=== PATIENT | female | born 2005 | race Caucasian/White ===

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

== ENCOUNTER 2023-01-25 16:56 | Emergency (ER) | payer MEDICAID, SELFPAY ==
[2023-01-25 17:30] VITALS: BP 115/68; PULSE 70; RESP 18; TEMP 36.6; O2SAT 98; BMI 30.3
--- NOTE | 2023-01-25 17:43 | EXP.UTC ---
Discharge Plan Disposition Patient Disposition: Home, Self-Care Condition: Good Referrals Follow up/Referrals: Provider,Referral, MD [Primary Care Provider] - See instructions Activity Restrictions/Add. Instructions Additional Instructions/Restrictions: Follow up with your Family Doctor Follow up with OBGYN if you continue to be late on your period Return if needed Straight to ER if any life threatening symptoms Clinical Impressions Clinical Impression: Encounter for test with result negative Discharge ED Provider: Liliana Goldberg [facility] General Stated complaint: test Mode of Arrival: Ambulatory Source of Information: Patient Limitations: No Limitations Time Seen by Provider: 01/25/23 17:43 Description of Symptoms (Recalled from Triage Doc. by RN): Pt wants a preg test. HEENT Symptoms (Recalled from RN notes): No Resp Symptoms (Recalled from RN notes): No Skin Symptoms (Recalled from RN notes): No MS Symptoms (Recalled from RN notes): No Functional Status (Recalled from RN notes): n/a History of Present Illness Provider Complaint: Patient states that she wants a test States that she took 7 home test and 6 was negative and one was positive so she wanted to come in and get a test here Related Data Allergies Allergy/AdvReac Type Severity Reaction Status Date / Time No Known Allergies Allergy Verified 01/25/23 17:42 Worker's Comp Is this a Worker's Comp case?: No [facility] Disclaimer: The information contained in this section may have been updated after the patient was seen, as this information can be updated by other users. Social History Smoking Status: Never smoker alcohol intake: never current occupational status: student Travel in the last 8 weeks: None ROS Obtained: Yes All systems reviewed & no additional complaints except as documented and Yes Systems reviewed as appropriate & no additional complaints except as documented Constitutional Constitutional: Reports system reviewed and no additional complaints, except as documented and Reports as per HPI ENT Ears, Nose, Mouth, and Throat: Reports system reviewed and no additional complaints, except as documented and Reports as per HPI Cardiovascular Cardiovascular: Reports system reviewed and no additional complaints, except as documented and Reports as per HPI Respiratory Respiratory: Reports system reviewed and no additional complaints, except as documented and Reports as per HPI Gastrointestinal Gastrointestingal: Reports system reviewed and no additional complaints, except as documented and as per HPI; Denies abdominal pain Genitourinary Female Genitourinary: Reports system reviewed and no additional complaints, except as documented and Reports as per HPI Comments: requesting test blood and urine Physical Exam General General appearance: alert and in no apparent distress ENT ENT exam: Present mucous membranes moist Respiratory Respiratory exam: Present normal lung sounds bilaterally; Absent respiratory distress or wheezes Cardiovascular Cardiovascular exam: Present regular rate, normal rhythm and normal heart sounds Abdominal Exam Abdominal exam: Present soft and normal bowel sounds; Absent distention or tenderness Neurological Exam Neurological exam: Present alert, oriented X3 and normal gait Medical Decision Making Yaakov Inquiry Pt receiving controlled substance: No Yaakov was queried for this patient: No Vital Signs: 01/25/23 17:30 Temperature 97.8 F Temperature Source Oral Pulse Rate [Right Radial] 70 Respiratory Rate 18 Blood Pressure [Right Arm] 115/68 Blood Pressure Mean [Right Arm] 83 Blood Pressure Source [Right Arm] Automatic Cuff Blood Pressure Position [Right Arm] Sitting 02 Sat by Pulse Oximetry 98 Oxygen Delivery Method Room Air Lab Data Lab results reviewed: Yes I reviewed the patient's lab results. Orders (Tests/Meds
[2023-01-25 18:02] LABS: UTC Pregnancy Test, Urine Negative (Negative)
[2023-01-25 18:15] LABS: HCG Qualitative, Serum Negative (Negative)
[2023-01-25 18:29] VITALS: BP 115/68; PULSE 70; RESP 18; TEMP 36.6; O2SAT 98
== END 2023-01-25 18:29 | disposition home or self-care (01) ==
PROVIDERS: Emergency Provider Nurse Practitioner
DX: Z32.02 Encounter for pregnancy test, result negative (principal)
CPT/HCPCS: 81025; 84703; 99212; G0463

== ENCOUNTER 2023-02-07 18:29 | Emergency (ER) | payer MEDICAID, SELFPAY ==
[2023-02-07 18:44] VITALS: BP 140/84; PULSE 104; RESP 16; TEMP 36.8; O2SAT 95; BMI 31.8
[2023-02-07 19:29] LABS: Microscopic, Urine URINE MICROSCOPIC (MICROSCOPIC)
[2023-02-07 19:32] LABS: Appearance,Urine CLEAR (Clear); Blood, Urine Negative (Negative); Color,Urine YELLOW (Yellow); Glucose,Urine (UA) Negative (Negative); Ketones,Urine Negative (Negative); Leukocyte Esterase,Urine 1+ (Negative); Nitrate,Urine Negative (Negative); PH,Urine 5.5 (5.0-8.5); Protein,Urine Negative (Negative); Specific Gravity, Urine >= 1.030 (1.005-1.030); Urobilinogen,Urine 0.2 EU/dl (0.2)
[2023-02-07 19:36] LABS: Urine Pregnancy, HCG Qual. Negative (Negative)
[2023-02-07 19:38] LABS: Bilirubin,Urine 1+ (Negative)
[2023-02-07 19:49] LABS: Basophils % 0.3 % (0.1-2.0); Eosinophils # 0.1 K/mm3 (0.0-0.4); Eosinophils % 1.2 % (0.1-12.0); Hematocrit 39.7 % (37.0-47.0); Hemoglobin 13.3 g/dL (12.2-16.2); Lymphocytes # 2.9 K/mm3 (0.7-4.5); Lymphocytes % 25.2 % (10-50); Mean Corpuscular HGB Conc 33.6 g/dL (31.8-35.4); Mean Corpuscular Hemoglobin 27.7 pg (27.0-31.2); Mean Corpuscular Volume 82.3 fl (81-99); Mean Platelet Volume 7.6 fl (7.4-10.4); Monocytes # 0.6 K/mm3 (0.1-1.0); Monocytes % 5.4 % (1.7-9.3); Neutrophils # 7.7 K/mm3 (1.8-7.8); Neutrophils % 67.8 % (37.0-80.0); Platelet Count 361 K/mm3 (142-424); Red Blood Count 4.82 M/mm3 (4.20-5.40); Red Cell Distribution Width 14.3 % (11.5-17.5); White Blood Count 11.4 K/mm3 (4.5-13.0)
[2023-02-07 19:50] LABS: Alanine Aminotransferase 24 U/L (12-78); Albumin Level 4.5 g/dl (3.5-5.0); Albumin/Globulin Ratio 1.2 (1.1-1.8); Alkaline Phosphatase 81 U/L (38-126); Anion Gap 8.5 mEq/L (5-15); Aspartate Amino Transferase 27 U/L (14-36); Bilirubin,Total 0.5 mg/dl (0.2-1.3); Blood Urea Nitrogen 10 mg/dl (7-17); Carbon Dioxide 26 mmol/L (22.0-30.0); Chloride 106 mmol/L (98-107); Creatinine Clearance Estimated 150 mL/min (50-200); Estimated Glomerular Filt Rate 107 ml/min (>60); GFR (African American) 129 ML/MIN (>60); Globulin 3.7 g/dL (1.3-3.2); Glucose 102 mg/dl (74-100); Lipase 94 U/L (23-300); Potassium 3.5 mmoL/L (3.5-5.1); Sodium 137 mmol/L (136-145); Total Protein,Serum 8.2 g/dl (6.3-8.2)
[2023-02-07 19:58] LABS: Bacteria,Urine Trace /lpf; Squamous Epithelial Cell,Urine Occasional #/hpf (0-5)
--- NOTE | 2023-02-07 20:27 | HMH.EDGENADL ---
Discharge Plan Disposition Patient Disposition: Home, Self-Care Prescriptions Prescriptions: New nitrofurantoin monohyd/m-cryst [Macrobid] 100 mg capsule 100 mg PO BID 5 Days Qty: 10 0RF Rx Instructions: must administer with a meal/food ondansetron 4 mg tablet,disintegrating 4 mg PO Q6H PRN (Reason: nausea and vomiting) Qty: 10 0RF Referrals Follow up/Referrals: Palmer Darden MD [Primary Care Provider] - See instructions Activity Restrictions/Add. Instructions Additional Instructions/Restrictions: Call your family doctor to establish care for this visit to the emergency department and schedule follow-up within 48 hours to ensure improvement. If you have any worsening of your condition or any other concerning signs or symptoms, return to the emergency department or your primary care doctor for further evaluation. Antibiotic twice daily for 5 days, Zofran as needed. Clinical Impressions Clinical Impression: UTI (urinary tract infection) Stand Alone Forms Stand Alone Forms: Work/School Release Instructions Patient Instructions: DI for Acute Abdominal Pain Discharge ED Provider: Efrain Pierre General Adult HPI General Chief complaint: Abdominal Pain Stated complaint: stomach ache Time Seen by Provider: 02/07/23 18:40 Mode of Arrival: Ambulatory Source of Information: Patient Limitations: No Limitations Description of Symptoms (Recalled from ER Triage Doc. by RN): c/o sharp in upper right quad that comes and goes for a few weeks. blood and urine preg came back negative. N/V in the t/o the day History of Present Illness HPI narrative: 18-year-old female presenting with abdominal pain. Starts in right upper quadrant, but radiates to her left lower quadrant. 1 episode of nonbloody, nonbilious vomiting today. No fevers or chills, diarrhea or constipation, dysuria, hematuria, abnormal vaginal discharge or bleeding. States that she just got off an antibiotic for UTI. Pain is mild, made better with rest, made worse with working. States when she gets stressed he gets worse. Related Data Previous Rx's Medication Instructions Recorded nitrofurantoin 100 mg PO BID 5 days #10 caps 02/07/23 monohydrate/macrocrystals 100 mg capsule (Macrobid) ondansetron 4 mg disintegrating 4 mg PO Q6H PRN nausea and 02/07/23 tablet vomiting #10 tabs Allergies Allergy/AdvReac Type Severity Reaction Status Date / Time No Known Allergies Allergy Verified 01/25/23 17:42 [facility] Disclaimer: The information contained in this section may have been updated after the patient was seen, as this information can be updated by other users. Social History Smoking Status: Never smoker alcohol intake: never current occupational status: student Travel in the last 8 weeks: None ROS Obtained: Yes All systems reviewed & no additional complaints except as documented Physical Exam General General appearance: alert and in no apparent distress Head Head exam: atraumatic and normocephalic Eye Eye exam: Present normal appearance, PERRL and EOMI ENT ENT exam: Present mucous membranes moist Neck Neck exam: Present normal inspection, full ROM and trachea midline Respiratory Respiratory exam: Absent respiratory distress, wheezes, stridor, accessory muscle use or prolonged expiratory phase Cardiovascular Cardiovascular exam: Present normal rhythm Abdominal Exam Abdominal exam: Present soft; Absent distention, tenderness, guarding, rebound, rigidity or normal bowel sounds Extremities Exam Extremities exam: Absent edema Neurological Exam Neurological exam: Present alert, oriented X3, CN II-XII intact and normal gait; Absent motor sensory deficit Skin Skin exam: Present warm and dry; Absent diaphoresis or erythema Medical Decision Making Medical Records Medical records reviewed: Yes I reviewed the patient's medical records. Yaakov Ewing Pt receiving controlle
[2023-02-07 20:42] VITALS: BP 114/72; PULSE 80; RESP 16; TEMP 36.7; O2SAT 99
--- NOTE | 2023-02-10 14:40 | PC.NURSE ---
urine preliminary reported growth but further testing needed.
--- NOTE | 2023-02-13 16:47 | PC.NURSE ---
urine culture shows mixed urogenital sophy, coagulase - staphy, Pt dc on macrobid, aware, no further action
== END 2023-02-07 20:44 | disposition home or self-care (01) ==
PROVIDERS: Emergency Provider Emergency Medicine; PCP Family Medicine
DX: N39.0 Urinary tract infection, site not specified (principal); R10.11 Right upper quadrant pain; R10.32 Left lower quadrant pain; R11.10 Vomiting, unspecified
CPT/HCPCS: 80053; 81001; 81025; 83690; 85025; 87086; 99285

== ENCOUNTER 2023-02-22 18:24 | Emergency (ER) | payer MEDICAID, SELFPAY ==
[2023-02-22 18:25] VITALS: BP 117/81; PULSE 82; RESP 20; TEMP 37; O2SAT 97; BMI 31.2
--- NOTE | 2023-02-22 18:25 | ECG_ITS ---
APPROVED REPORT Exam: Resting ECG HR:79 bpm ECG Measurements Heart Rate 79 AXES WI 126 P 74 QRSd 76 QRS 24 QT 342 T 24 QTc 377 Conclusion SINUS RHYTHM NORMAL ECG UNCONFIRMED REPORT Electronically signed by : Dante Ovalle MD 02/24/2023 20:37:45
--- NOTE | 2023-02-22 18:27 | PC.NURSE ---
Dr. Ricketts at [facility] for pt eval
--- NOTE | 2023-02-22 18:34 | XR_ITS ---
PROCEDURE INFORMATION: Exam: XR Chest Exam date and time: 02/22/2023 6:35 PM Age: 18 years old Clinical indication: Pain; Left-sided; Additional info: Dyspnea TECHNIQUE: Imaging protocol: Radiologic exam of the chest. Views: 1 view. COMPARISON: CR XR CHEST 2V 10/20/2020 10:20 PM FINDINGS: Lungs: Unremarkable. No consolidation. Pleural spaces: Unremarkable. No pleural effusion. No pneumothorax. Heart/Mediastinum: Unremarkable. No cardiomegaly. Bones/joints: Unremarkable. IMPRESSION: No acute findings.
--- NOTE | 2023-02-22 18:35 | ED_ITS ---
Discharge Plan Disposition Patient Disposition: Home, Self-Care Prescriptions Prescriptions: New ondansetron 4 mg tablet,disintegrating 4 mg PO Q6H PRN (Reason: nausea and vomiting) 5 Days Qty: 20 0RF No Action nitrofurantoin monohyd/m-cryst [Macrobid] 100 mg capsule 100 mg PO BID 5 Days Qty: 10 0RF Rx Instructions: must administer with a meal/food ondansetron 4 mg tablet,disintegrating 4 mg PO Q6H PRN (Reason: nausea and vomiting) Qty: 10 0RF Referrals Follow up/Referrals: Palmer Darden MD [Primary Care Provider] - See instructions Clinical Impressions Clinical Impression: Atypical chest pain, Abdominal pain, Cyclical vomiting with nausea Discharge ED Provider: Dhaval Ricketts General Adult HPI General Chief complaint: Chest Pain Stated complaint: Chest Pain Time Seen by Provider: 02/22/23 18:27 History of Present Illness HPI narrative: Patient is a 18-year-old female with a history of chronic marijuana smoking presents today with 2 months of intermittent nausea and chest pain that started today. States that she has been smoking marijuana because it helps with her migraines in the past. She has been to the emergency department several times with abdominal discomfort nausea and vomiting. Today she states that she is having some substernal chest pressure nonradiating not associate with shortness of breath no diaphoresis associated with that she is not on any control pills no history of DVT or PE lower extremity swelling hemoptysis etc. She also complains of epigastric and left upper quadrant abdominal discomfort which is very mild. Denies any other significant past medical history. Fevers chills cough etc. today. Related Data Previous Rx's Medication Instructions Recorded nitrofurantoin 100 mg PO BID 5 days #10 caps 02/07/23 monohydrate/macrocrystals 100 mg capsule (Macrobid) ondansetron 4 mg disintegrating 4 mg PO Q6H PRN nausea and 02/07/23 tablet vomiting #10 tabs ondansetron 4 mg disintegrating 4 mg PO Q6H PRN nausea and 02/22/23 tablet vomiting 5 days #20 tabs Allergies Allergy/AdvReac Type Severity Reaction Status Date / Time No Known Allergies Allergy Verified 01/25/23 17:42 PFSH PFS Disclaimer: The information contained in this section may have been updated after the patient was seen, as this information can be updated by other users. Social History Smoking Status: Current every day smoker alcohol intake: never current occupational status: student Travel in the last 8 weeks: None ROS Obtained: Yes All systems reviewed & no additional complaints except as documented Physical Exam General General appearance: anxious (Tearful) and other (Smells very strongly of marijuana) Respiratory Respiratory exam: Present normal lung sounds bilaterally; Absent respiratory distress, wheezes or stridor Cardiovascular Cardiovascular exam: Present regular rate; Absent tachycardia Abdominal Exam Abdominal exam: Present soft; Absent distention or tenderness Neurological Exam Neurological exam: Present alert Medical Decision Making Yaakov Inquiry Pt receiving controlled substance: No Vital Signs: 02/22/23 18:25 Temperature 98.6 F Temperature Source Oral Pulse Rate [Right Radial] 82 Respiratory Rate 20 Blood Pressure [Right Arm] 117/81 Blood Pressure Mean [Right Arm] 93 Blood Pressure Source [Right Arm] Automatic Cuff Blood Pressure Position [Right Arm] Sitting 02 Sat by Pulse Oximetry 97 Oxygen Delivery Method Room Air Lab Data Lab results reviewed: Yes I reviewed the patient's lab results. Lab Results 02/22/23 18:30: WBC 8.9, RBC 4.82, Hgb 13.0, Hct 40.0, MCV 83.1, MCH 26.9 L, MCHC 32.4, RDW 15.0, Plt Count 324, MPV 8.6, Neut % (Auto) 76.1, Lymph % (Auto) 19.2, [place] % (Auto) 3.8, Eos % (Auto) 0.5, Baso % (Auto) 0.4, Neut # (Auto) 6.8, Lymph # (Auto) 1.7, [place] # (Auto) 0.3, Eos # (Auto) 0.0, Baso # (Auto) 0.0, Sodium 135 L, Potassium 3.8, Chloride 106, Carbon Dioxide 24, Anion Gap 8.8, BUN 7, Creatinine 0.60, Estimated Creat Clear 171, Estimated GFR 127, Est GFR ( Amer) 154, Glucose 106 H, Calcium 8.7, Total Bilirubin 0.3, AST 30, ALT 21, Alkaline Phosphatase 89, Troponin I < 0.01, Total Protein 7.7, Albumin 4.3, Globulin 3.4 H, Albumin/Globulin Ratio 1.3, Lipase 74, Serum HCG, Qual Negative 02/22/23 18:47: Urine Color Yellow, Urine Appearance Clear, Urine pH 6.0, Ur Specific [place] 1.010, Urine Protein Negative, Urine Glucose (UA) Negative, Urine Ketones Negative, Urine Blood 1+, Urine Nitrate Negative, Urine Bilirubin Negative, Urine Urobilinogen 0.2, Ur Leukocyte Esterase 3+ A 02/22/23 18:30 02/22/23 18:30 Orders (Tests/Meds): ED MEDICATIONS Discontinued Medications Generic Name Dose Route Start Last Admin Trade Name Freq PRN Reason Stop Dose Admin Lactated Ringer's 1,000 mls @ 999 mls/hr 02/22/23 18:45 02/22/23 18:49 Lactated Ringer's 1000 Ml Bag IV 02/22/23 19:45 999 mls/hr .Q1H1M NEMO Administration Ketorolac Tromethamine 15 mg 02/22/23 18:34 02/22/23 18:49 Ketorolac 30mg/Ml Vial IV 02/22/23 18:35 15 mg ONCE ONE Administration Ondansetron HCl 4 mg 02/22/23 18:34 02/22/23 18:49 Ondansetron 4mg/2ml Vial IV 02/22/23 18:35 4 mg ONCE ONE Administration ORDERS Category Date Time Status CXR --portable [XR chest portable] Stat Exams 02/22/23 18:34 Completed CBC w/Auto Diff [Complete Blood Count Auto Diff] Stat Lab 02/22/23 18:30 Completed CMP [Comprehensive Metabolic Panel] Stat Lab 02/22/23 18:30 Completed HCG Qualitative, Serum Stat Lab 02/22/23 18:30 Completed Lipase Stat Lab 02/22/23 18:30 Completed Troponin I Q3H Lab 02/22/23 22:15 Ordered Troponin I Q3H Lab 02/23/23 01:15 Ordered Troponin I Stat Lab 02/22/23 18:30 Completed UA [Urinalysis and Microscopic] Stat Lab 02/22/23 18:47 Results Urine Culture Stat Micro 02/22/23 18:47 Received ECG initial Besson Routine Y 02/22/23 18:25 Completed Medical Decision Narrative: 18-year-old female with intermittent abdominal discomfort nausea and vomiting with associated chronic marijuana smoking 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 She presents today with chest pain and abdominal discomfort abdominal exam is completely benign cardiopulmonary exam is benign as well she has no other significant risk factors we will get a single troponin she is PERC negative will get a chest x-ray administer Toradol Zofran IV fluids and reassess. This is not likely to be a cardiopulmonary emergency her abdominal exam is not consistent with a surgical emergency she has been advised to follow- up with her primary care doctor and to discontinue her marijuana use chronically as this could be secondary to her marijuana abuse. She voices understanding today. EKG performed which I personally interpreted shows a ventricular rate of 79 normal sinus rhythm no acute ischemic changes noted normal axis no conduction abnormalities this is nondiagnostic. Patient's urinalysis showed positive leukocyte Estrace however she has no frequency urgency dysuria will not treat this as a urinary tract infection. X-ray performed in person interpreted shows no acute cardiopulmonary emergency. Abs unremarkable serial abdominal exams completely benign she is tolerating p.o. prescription of Zofran has been given this is not consistent with an acute cardiopulmonary emergency was she was discharged in proved in stable condition. Critical Care Critical Care Time Critical Care Time: No
--- NOTE | 2023-02-22 18:40 | PC.NURSE ---
Rad at [facility] for portable xray
[2023-02-22 18:44] LABS: Basophils % 0.4 % (0.1-2.0); Eosinophils % 0.5 % (0.1-12.0); Lymphocytes # 1.7 K/mm3 (0.7-4.5); Lymphocytes % 19.2 % (10-50); Mean Corpuscular HGB Conc 32.4 g/dL (31.8-35.4); Mean Corpuscular Hemoglobin 26.9 pg (27.0-31.2); Mean Corpuscular Volume 83.1 fl (81-99); Mean Platelet Volume 8.6 fl (7.4-10.4); Monocytes # 0.3 K/mm3 (0.1-1.0); Monocytes % 3.8 % (1.7-9.3); Neutrophils # 6.8 K/mm3 (1.8-7.8); Neutrophils % 76.1 % (37.0-80.0); Platelet Count 324 K/mm3 (142-424); Red Blood Count 4.82 M/mm3 (4.20-5.40); White Blood Count 8.9 K/mm3 (4.5-13.0)
[2023-02-22] MEDS: LACTATED RINGERS 1000ML 1,000 ML 999 ML IV (18:49)
[2023-02-22] MEDS: KETOROLAC 30MG/ML VIAL 15 MG IV (18:49)
[2023-02-22] MEDS: ONDANSETRON 4MG/2ML VIAL 4 MG IV (18:49)
--- NOTE | 2023-02-22 18:49 | PC.NURSE ---
Pt ambulatory to bathroom and back to bed. Warm blanket provided and call light within reach.
[2023-02-22 18:52] LABS: Alanine Aminotransferase 21 U/L (12-78); Albumin Level 4.3 g/dl (3.5-5.0); Albumin/Globulin Ratio 1.3 (1.1-1.8); Alkaline Phosphatase 89 U/L (38-126); Anion Gap 8.8 mEq/L (5-15); Aspartate Amino Transferase 30 U/L (14-36); Bilirubin,Total 0.3 mg/dl (0.2-1.3); Blood Urea Nitrogen 7 mg/dl (7-17); Calcium 8.7 mg/dl (8.4-10.2); Carbon Dioxide 24 mmol/L (22.0-30.0); Chloride 106 mmol/L (98-107); Creatinine Clearance Estimated 171 mL/min (50-200); Estimated Glomerular Filt Rate 127 ml/min (>60); GFR (African American) 154 ML/MIN (>60); Globulin 3.4 g/dL (1.3-3.2); Glucose 106 mg/dl (74-100); Lipase 74 U/L (23-300); Potassium 3.8 mmoL/L (3.5-5.1); Sodium 135 mmol/L (136-145); Total Protein,Serum 7.7 g/dl (6.3-8.2)
[2023-02-22 19:00] LABS: HCG Qualitative, Serum Negative (Negative)
[2023-02-22 19:04] LABS: Microscopic, Urine URINE MICROSCOPIC (MICROSCOPIC)
--- NOTE | 2023-02-22 19:58 | PC.NURSE ---
Pt sitting in bed on phone, reports pain much better, denies any new complaints.
[2023-02-22 19:59] LABS: Troponin I < 0.01 ng/ml (0.00-0.034)
[2023-02-22 20:00] LABS: Appearance,Urine CLEAR (Clear); Bilirubin,Urine Negative (Negative); Blood, Urine 1+ (Negative); Color,Urine YELLOW (Yellow); Glucose,Urine (UA) Negative (Negative); Ketones,Urine Negative (Negative); Leukocyte Esterase,Urine 3+ (Negative); Nitrate,Urine Negative (Negative); Protein,Urine Negative (Negative); Urobilinogen,Urine 0.2 EU/dl (0.2)
--- NOTE | 2023-02-22 20:36 | PC.NURSE ---
Rounded on patient, patient assisted to bathroom at this time.
[2023-02-22 20:54] VITALS: BP 129/73; PULSE 86; RESP 16; TEMP 36.9; O2SAT 97
[2023-02-22 21:04] LABS: Bacteria,Urine 1+ /lpf
--- NOTE | 2023-02-26 02:19 | PC.NURSE ---
Dr. Adams looked at the positive urine culture result and stated no further treatment was needed at this time.
== END 2023-02-22 20:55 | disposition home or self-care (01) ==
PROVIDERS: Emergency Provider Student in an Organized Health Care Education/Training Program; PCP Family Medicine
DX: R07.89 Other chest pain (principal); R10.13 Epigastric pain; R10.12 Left upper quadrant pain; R11.2 Nausea with vomiting, unspecified; F17.200 Nicotine dependence, unspecified, uncomplicated
CPT/HCPCS: 71045; 80053; 81001; 83690; 84484; 84703; 85025; 87086; 93005; 96361; 96374; 96375; 99285; J2405

== ENCOUNTER 2023-03-21 10:31 | Outpatient (CLI) | payer OTHER, MEDICAID, SELFPAY ==
--- NOTE | 2023-03-21 10:44 | US_ITS ---
PROCEDURE: US TRANSVAGINAL CLINICAL INDICATION: Pelvic Pain COMPARISON: No exams were available for comparison FINDINGS: Transvaginal and transabdominal sonographic images of the pelvis were obtained. UTERUS: 6.0cm x 5.2cmx 3.1cm retroverted and retroflexed with a combined endometrial thickness of 11.2mm. LEFT OVARY: 13.5cmx15.0cmx9.8cm with a volume of 1,037.3ml. Left ovary is grossly enlarged with a simple appearing cyst measuring 13.5 cm x 13.2 cm X 9.8 cm. RIGHT OVARY: 7.0 cmx 5cmx4.1cm with a volume of 58.3ml. There is a follicle measuring 2.9 cm x 2.5 cm x 2.4 cm. Both ovaries are seen. Doppler flow to both ovaries are seen. There is no fluid in the cul-de-sac. IMPRESSION: 1. Retroverted, retroflexed uterus normal in shape and size. The endometrium is normal at 11.2 mm. 2. The left ovary is grossly enlarged with a simple appearing cyst measuring 13.5 cm. 3. The right ovary is enlarged and contains a simple follicle measuring 2.9 cm. 4. No fluid in the cul-de-sac. Dictated by: Kannan Gautam MD 03/21/2023 14:05 Kannan Gautam MD in [facility] 03/21/2023 14:05
== END 2023-03-21 23:59 ==
LOC: RAD 10:32
PROVIDERS: PCP Family Medicine; Visit Provider Obstetrics & Gynecology
DX: R10.2 Pelvic and perineal pain (principal)
CPT/HCPCS: 76830

== ENCOUNTER 2023-04-10 12:09 | Emergency (ER) | payer OTHER, MEDICAID, SELFPAY ==
[2023-04-10 12:15] VITALS: BP 134/78; PULSE 90; RESP 18; TEMP 37; O2SAT 99; BMI 33.0
--- NOTE | 2023-04-10 12:40 | ED_ITS ---
Discharge Plan Disposition Patient Disposition: Home, Self-Care Condition: Good Prescriptions Prescriptions: New amoxicillin 500 mg capsule 500 mg PO BID 10 Days Qty: 20 0RF Referrals Follow up/Referrals: Provider,Referral, MD [Primary Care Provider] - See instructions Activity Restrictions/Add. Instructions Additional Instructions/Restrictions: *Monitor Temp, Over the counter Motrin or Tylenol as directed/as needed Tylenol every 4 hours and Motrin every 6 hours (as long as your family doctor has told you that you can take it) for fever or pain. and straight to ER if unable to lower temp less than 101.0 after medication given *Warm salt water gargles may help to soothe the throat *Throat Lozenges? *Warm fluids like tea with honey may help to soothe the throat? *Sleep elevated *Humidifier/Vaporizer *Your throat swab was sent for culture. Those results are typically sent to your primary care. Be sure to follow up in 2-3 days with your family doctor/primary care physician if no improvement so they can review those result and treat if necessary. If you don?t have a primary care doctor, I recommend you get one but in the mean time, you will have to return to a walk in clinic Follow up IMMEDIATELY for new or worsening symptoms or no Noticeable improvement over the next 48-72 hours. 911 for difficulty breathing or swallowing Clinical Impressions Clinical Impression: Pharyngitis Qualifiers: Pharyngitis/tonsillitis etiology: unspecified etiology Qualified Code(s): J02.9 - Acute pharyngitis, unspecified Stand Alone Forms Stand Alone Forms: Work/School Release Instructions Patient Instructions: Sore Throat, DI for Fever (Symptom) -- Adult Discharge ED Provider: Liliana Goldberg [facility] General Stated complaint: sore throat, fever Mode of Arrival: Ambulatory Source of Information: Patient Time Seen by Provider: 04/10/23 12:40 Description of Symptoms (Recalled from Triage Doc. by RN): Pt's symptoms are sore throat. HEENT Symptoms (Recalled from RN notes): Yes Resp Symptoms (Recalled from RN notes): No Skin Symptoms (Recalled from RN notes): No MS Symptoms (Recalled from RN notes): No Functional Status (Recalled from RN notes): n/a History of Present Illness Provider Complaint: Patient states that yesterday she started having fever and sore throat States that as the night went on it continued to get worse States that today her throat was more swollen and red and had blisters on her tonsils so she came in Related Data Previous Rx's Medication Instructions Recorded amoxicillin 500 mg capsule 500 mg PO BID 10 days #20 caps 04/10/23 Allergies Allergy/AdvReac Type Severity Reaction Status Date / Time acetaminophen [From Tylenol] AdvReac Mild Vomiting Verified 04/10/23 12:39 Worker's Comp Is this a Worker's Comp case?: No [facility] Disclaimer: The information contained in this section may have been updated after the patient was seen, as this information can be updated by other users. 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 (Updated 04/10/23 @ 13:05 by Liliana Goldberg APRN) Left ovarian cyst Nausea Pelvic pain Family History Other Alcoholism Asthma Cancer Coronary artery disease Diabetes FHx: mental illness Heart attack Hyperlipidemia Hypertension Stroke Social History Smoking Status: Current every day smoker alcohol intake: never substance use type: marijuana current occupational status: student Travel in the last 8 weeks: None ROS Obtained: Yes All systems reviewed & no additional complaints except as documented and Yes Systems reviewed as appropriate & no additional complaints except as documented Constitutional Constitutional: Reports system reviewed and no additional complaints, except as documented, Reports as per HPI and Reports fever(s) ENT Ears, Nose, Mouth, and Throat: Reports system reviewed and no additional complaints, except as documented, Reports as per HPI and Reports sore throat Cardiovascular Cardiovascular: Reports system reviewed and no additional complaints, except as documented and Reports as per HPI Respiratory Respiratory: Reports system reviewed and no additional complaints, except as documented and Reports as per HPI Gastrointestinal Gastrointestingal: Reports system reviewed and no additional complaints, except as documented and as per HPI Physical Exam General General appearance: alert and in no apparent distress ENT ENT exam: Present mucous membranes moist Expanded ENT Exam Throat exam: Present tonsillar erythema and tonsillar exudate Respiratory Respiratory exam: Present normal lung sounds bilaterally; Absent respiratory distress or wheezes Cardiovascular Cardiovascular exam: Present regular rate, normal rhythm and normal heart sounds Neurological Exam Neurological exam: Present alert, oriented X3 and normal gait Medical Decision Making Yaakov Inquiry Pt receiving controlled substance: No Yaakov was queried for this patient: No Vital Signs: 04/10/23 12:15 Temperature 98.6 F Temperature Source Oral Pulse Rate [Right Radial] 90 Respiratory Rate 18 Blood Pressure [Right Arm] 134/78 Blood Pressure Mean [Right Arm] 96 Blood Pressure Source [Right Arm] Automatic Cuff Blood Pressure Position [Right Arm] Sitting 02 Sat by Pulse Oximetry 99 Oxygen Delivery Method Room Air Lab Data Lab results reviewed: Yes I reviewed the patient's lab results. Medical Decision Narrative: Patient rapid strep test negative however exudate noted on right tonsil area
[2023-04-10 13:04] LABS: UTC Influenza A Antigen Negative (Negative); UTC Influenza B Antigen Negative (Negative); UTC Strep Screen (Rapid) Negative (Negative)
[2023-04-10 13:18] VITALS: BP 134/78; PULSE 90; RESP 18; TEMP 37; O2SAT 99
== END 2023-04-10 13:18 | disposition home or self-care (01) ==
PROVIDERS: Emergency Provider Nurse Practitioner
DX: J02.9 Acute pharyngitis, unspecified (principal); R50.9 Fever, unspecified; F17.210 Nicotine dependence, cigarettes, uncomplicated
CPT/HCPCS: 87804; 87880; 99212; 99214; G0463

== ENCOUNTER 2023-05-02 10:48 | Outpatient (CLI) | payer OTHER, MEDICAID, SELFPAY ==
--- NOTE | 2023-05-02 10:54 | US_ITS ---
PROCEDURE: US TRANSVAGINAL CLINICAL INDICATION: f/u on ovarian cyst and abdominal pelvic pain COMPARISON: US US TRANSVAGINAL from 03/21/2023 FINDINGS: Transvaginal sonographic images of the pelvis were obtained. UTERUS: 5.9 cm x 4.4cmx 30cm retroverted with a combined endometrial thickness of 12.7mm. LEFT OVARY: 13.8 cmx14.2cmx11.2cm with a volume of 1,147.5ml. The left ovary contains a large simple appearing cyst measuring 13.6 cm x 13.0 cm x 10.0 cm. Similar in size to her last ultrasound. RIGHT OVARY: 4.9 cmx 4.2cmx2.9 cm with a volume of 31.2ml. Within the right ovary is a follicle measuring 3.0 cm x 2.8 cm x 2.4 cm. Both ovaries are seen and appear normal. Doppler flow to both ovaries are seen. There is trace fluid in the cul-de-sac. IMPRESSION: 1. Retroverted uterus normal in shape and size. The endometrium appears normal. 2. The left ovary is enlarged with a simple appearing cyst that measures 13.6 cm. This is similar in size to her last ultrasound. 3. The right ovary appears normal and has a follicle measuring 3.0 cm. 4. Trace fluid in the cul-de-sac. Dictated by: Kannan Gautam MD 05/02/2023 15:02 Kannan Gautam MD in [facility] 05/02/2023 15:02
== END 2023-05-02 23:59 ==
LOC: RAD 10:48
PROVIDERS: Visit Provider Obstetrics & Gynecology
DX: N83.202 Unspecified ovarian cyst, left side (principal); R10.9 Unspecified abdominal pain; R10.2 Pelvic and perineal pain
CPT/HCPCS: 76830

== ENCOUNTER 2023-05-21 12:37 | Emergency (ER) | payer OTHER, MEDICAID, SELFPAY ==
[2023-05-21] VITALS (7 sets, daily range): BP systolic 94–127; BP diastolic 60–87; PULSE 69–93; RESP 16–20; TEMP 36.6–36.9; O2SAT 97–100; BMI 31.1
--- NOTE | 2023-05-21 13:10 | ED_ITS ---
Discharge Plan Disposition Patient Disposition: Home, Self-Care Condition: Good Prescriptions Prescriptions: New cefdinir 300 mg capsule 300 mg PO BID 5 Days Qty: 10 0RF Referrals Follow up/Referrals: Deven Clarke DO [Primary Care Provider] - See instructions Activity Restrictions/Add. Instructions Additional Instructions/Restrictions: You were seen in the ED due to abdominal pain. Labs were reassuring. Urinalysis shows urinary tract infection. Please take antibiotics as prescribed. Follow-up with your SECURITIES LENDING TRADER. Return to the ED if symptoms worsen or if new concerning symptoms arise. Clinical Impressions Clinical Impression: Lower abdominal pain Acute cystitis Qualifiers: Hematuria presence: with hematuria Qualified Code(s): N30.01 - Acute cystitis with hematuria Instructions Patient Instructions: DI for Acute Abdominal Pain Discharge ED Provider: Hal Hogan General Adult HPI General Chief complaint: Abdominal Pain Stated complaint: abd pain Time Seen by Provider: 05/21/23 13:03 Mode of Arrival: Ambulatory Source of Information: Patient Limitations: No Limitations Description of Symptoms (Recalled from ER Triage Doc. by RN): pt presents to ED with c/o bilateral lower abdominal pain. pt reports she is to have a cyst removed on june 15. pt unsure of what side she has a cyst on. symptoms ongoing for the past couple of days . pain is intermittent History of Present Illness HPI narrative: Patient is an otherwise healthy 18-year-old female presenting due to abdominal pain. Patient states for the past 2 days she has has increasing lower abdominal pain. States she believes this is related to an ovarian cyst that was discovered last month. States this has been causing her pain on and off for the past couple of months. She has had associated nausea but no vomiting. Denies any fevers or chills. Denies any dysuria or changes in bowel movements. Denies any vaginal bleeding. Patient states she is scheduled for surgery on 06/15 to address the cyst. Related Data Previous Rx's Medication Instructions Recorded cefdinir 300 mg capsule 300 mg PO BID 5 days #10 caps 05/21/23 Allergies Allergy/AdvReac Type Severity Reaction Status Date / Time acetaminophen [From Tylenol] AdvReac Mild Vomiting Verified 05/03/23 10:20 [facility] Disclaimer: The information contained in this section may have been updated after the patient was seen, as this information can be updated by other users. 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 Left ovarian cyst Nausea Pelvic pain Surgical History No significant past surgical history Family History Other Alcoholism Asthma Cancer Coronary artery disease Diabetes FHx: mental illness Heart attack Hyperlipidemia Hypertension Stroke Social History Smoking Status: Never smoker alcohol intake: never substance use type: marijuana current occupational status: student Travel in the last 8 weeks: None ROS Obtained: Yes All systems reviewed & no additional complaints except as documented Gastrointestinal Gastrointestingal: Reports abdominal pain and nausea Physical Exam General General appearance: alert and in no apparent distress Head Head exam: atraumatic, normocephalic and normal inspection Eye Eye exam: Present normal appearance, PERRL and EOMI ENT ENT exam: Present normal exam, normal oropharynx, mucous membranes moist, TM's normal bilaterally and normal external ear exam Neck Neck exam: Present normal inspection, full ROM and trachea midline; Absent meningismus or lymphadenopathy Chest Chest inspection: Present normal inspection and symmetric chest wall rise; Absent tenderness Respiratory Respiratory exam: Present normal lung sounds bilaterally; Absent respiratory distress Cardiovascular Cardiovascular exam: Present regular rate and normal rhythm; Absent JVD Abdominal Exam Abdominal exam: Present soft, tenderness and normal bowel sounds; Absent distention or guarding Comment: Generalized abdominal tenderness localized to suprapubic region and left lower quadrant. Abdomen soft, nondistended. Extremities Exam Extremities exam: Present normal inspection, full ROM and normal capillary refill; Absent calf tenderness Back Exam Back exam: Present normal inspection; Absent tenderness Neurological Exam Neurological exam: Present alert and oriented X3 Psychiatric Psychiatric exam: Present normal affect and normal mood Skin Skin exam: Present warm, dry, intact and normal color Lymphatic Lymphatic Findings: no adenopathy Medical Decision Making Yaakov Inquiry Pt receiving controlled substance: No Yaakov was queried for this patient: No Vital Signs: 05/21/23 12:39 05/21/23 13:00 05/21/23 13:30 Temperature 98.5 F Temperature Source Oral Pulse Rate 81 90 Pulse Rate [Left Radial] 90 Respiratory Rate 17 20 18 Blood Pressure 109/74 L 111/63 Blood Pressure [Right Arm] 127/87 Blood Pressure Mean 85 79 Blood Pressure Mean [Right Arm] 100 02 Sat by Pulse Oximetry 97 98 98 Oxygen Delivery Method Room Air 05/21/23 14:00 05/21/23 14:31 05/21/23 15:00 Temperature Temperature Source Pulse Rate 69 79 93 H Pulse Rate [Left Radial] Respiratory Rate 20 Blood Pressure 113/82 113/79 94/60 L Blood Pressure [Right Arm] Blood Pressure Mean 84 Blood Pressure Mean [Right Arm] 02 Sat by Pulse Oximetry 100 98 98 Oxygen Delivery Method Room Air Lab Data Lab Results 05/21/23 12:42: Urine Color Yellow, Urine Appearance Clear, Urine pH 5.5, Ur Specific [place] >= 1.030, Urine Protein Negative, Urine Glucose (UA) Negative, Urine Ketones Negative, Urine Blood Trace-i, Urine Nitrate Negative, Urine Bilirubin Negative, Urine Urobilinogen 0.2, Ur Leukocyte Esterase 3+ A, Urine RBC Occasional, Urine WBC 10-20, Ur Squamous Epith Cells 5-10, Urine Bacteria 1+ 05/21/23 12:52: WBC 7.8, RBC 4.84, Hgb 12.4, Hct 40.4, MCV 83.5, MCH 25.7 L, M CHC 30.8 L, RDW 15.3, Plt Count 313, MPV 9.2, Neut % (Auto) 58.3, Lymph % (Auto) 31.9, [place] % (Auto) 5.5, Eos % (Auto) 2.8, Baso % (Auto) 1.4, Neut # (Auto) 4.6, Lymph # (Auto) 2.5, [place] # (Auto) 0.4, Eos # (Auto) 0.2, Baso # (Auto) 0.1, Sodium 140, Potassium 3.7, Chloride 109 H, Carbon Dioxide 26, Anion Gap 8.7, BUN 9, Creatinine 0.70, Estimated Creat Clear 156, Estimated GFR 107, Est GFR ( Amer) 129, Glucose 81, Calcium 9.7, Total Bilirubin 0.4, AST 25, ALT 21, Alkaline Phosphatase 86, Total Protein 7.6, Albumin 4.2, Globulin 3.4 H, Albumin/Globulin Ratio 1.2, Lipase 57, Serum HCG, Qual Negative 05/21/23 12:52 05/21/23 12:52 Orders (Tests/Meds): ED MEDICATIONS Generic Name Dose Route Start Last Admin Trade Name Freq PRN Reason Stop Dose Admin Sodium Chloride 1,000 mls @ 500 mls/hr 05/21/23 13:15 05/21/23 13:38 Sod Chlor 0.9% 1000ml Bag IV 06/20/23 13:14 500 mls/hr .Q2H NEMO Administration Discontinued Medications Generic Name Dose Route Start Last Admin Trade Name Freq PRN Reason Stop Dose Admin Ceftriaxone Sodium 1 gm/ 50 mls @ 100 mls/hr 05/21/23 14:13 05/21/23 14:23 Sodium Chloride IV 05/21/23 14:42 100 mls/hr ONCE ONE Administration Morphine Sulfate 4 mg 05/21/23 13:07 05/21/23 13:40 Morphine 4mg/Ml Syringe IV 05/21/23 13:08 4 mg ONCE ONE Administration Ondansetron HCl 4 mg 05/21/23 13:07 05/21/23 13:40 Ondansetron 4mg/2ml Vial IV 05/21/23 13:08 4 mg ONCE ONE Administration ORDERS Category Date Time Status Complete Blood Count Auto Diff Stat Lab 05/21/23 12:52 Completed Comprehensive Metabolic Panel Stat Lab 05/21/23 12:52 Completed HCG Qualitative, Serum Stat Lab 05/21/23 12:52 Completed Lipase Stat Lab 05/21/23 12:52 Completed Urinalysis and Microscopic Stat Lab 05/21/23 12:42 Completed Urine Culture Stat Micro 05/21/23 12:42 Received Medical Decision Narrative: In summary, patient is 18-year-old female with history of left ovarian cyst, evaluated in the emergency department today due to lower abdominal pain. On arrival, patient is hemodynamically stable with normal vital signs. On examination, patient has generalized abdominal tenderness localized to suprapubic region and left lower quadrant. Differential diagnosis includes but is not limited to ovarian cyst, urinary tract infection, ovarian torsion, kidney stone. Patient given normal saline bolus, IV morphine, IV Zofran. Workup initiated including CBC, CMP, lipase, qualitative hCG, urinalysis. Labs independently interpreted by me and significant for urinalysis with 3+ leuk esterase, 10-20 WBCs, 1+ bacteria. Patient given 1 g IV Rocephin. On reevaluation, patient reports improvement in symptoms and is tolerating oral intake without difficulty. I considered the utility of obtaining CT imaging, but decided against this because lab work is reassuring and patient's symptoms improved. I considered admitting the patient to the hospital for observation, and in shared decision-making with patient, decided on outpatient management. Critical Care Critical Care Time Critical Care Time: No
[2023-05-21 13:17] LABS: Microscopic, Urine URINE MICROSCOPIC (MICROSCOPIC)
[2023-05-21 13:21] LABS: Appearance,Urine CLEAR (Clear); Bilirubin,Urine Negative (Negative); Blood, Urine TRACE-I (Negative); Color,Urine YELLOW (Yellow); Glucose,Urine (UA) Negative (Negative); Ketones,Urine Negative (Negative); Leukocyte Esterase,Urine 3+ (Negative); Nitrate,Urine Negative (Negative); PH,Urine 5.5 (5.0-8.5); Protein,Urine Negative (Negative); Specific Gravity, Urine >= 1.030 (1.005-1.030); Urobilinogen,Urine 0.2 EU/dl (0.2)
[2023-05-21 13:21] LABS: Chloride 109 mmol/L (98-107); Potassium 3.7 mmoL/L (3.5-5.1); Sodium 140 mmol/L (136-145)
[2023-05-21 13:24] LABS: Alanine Aminotransferase 21 U/L (12-78); Albumin Level 4.2 g/dl (3.5-5.0); Albumin/Globulin Ratio 1.2 (1.1-1.8); Alkaline Phosphatase 86 U/L (38-126); Anion Gap 8.7 mEq/L (5-15); Aspartate Amino Transferase 25 U/L (14-36); Bilirubin,Total 0.4 mg/dl (0.2-1.3); Blood Urea Nitrogen 9 mg/dl (7-17); Calcium 9.7 mg/dl (8.4-10.2); Carbon Dioxide 26 mmol/L (22.0-30.0); Creatinine Clearance Estimated 156 mL/min (50-200); Estimated Glomerular Filt Rate 107 ml/min (>60); GFR (African American) 129 ML/MIN (>60); Globulin 3.4 g/dL (1.3-3.2); Glucose 81 mg/dl (74-100); Lipase 57 U/L (23-300); Total Protein,Serum 7.6 g/dl (6.3-8.2)
--- NOTE | 2023-05-21 13:31 | PC.NURSE ---
Rounded on patient, no needs voiced at this time.
[2023-05-21] MEDS: 0.9 % SODIUM CHLORIDE 1000ML 1,000 ML 500 ML IV (13:38)
[2023-05-21] MEDS: MORPHINE 4MG/ML SYRINGE 4 MG IV (13:40)
[2023-05-21] MEDS: ONDANSETRON 4MG/2ML VIAL 4 MG IV (13:40)
[2023-05-21 13:41] LABS: Basophils # 0.1 K/mm3 (0-0.2); Basophils % 1.4 % (0.1-2.0); Eosinophils # 0.2 K/mm3 (0.0-0.4); Eosinophils % 2.8 % (0.1-12.0); Hematocrit 40.4 % (37.0-47.0); Hemoglobin 12.4 g/dL (12.2-16.2); Lymphocytes # 2.5 K/mm3 (0.7-4.5); Lymphocytes % 31.9 % (10-50); Mean Corpuscular HGB Conc 30.8 g/dL (31.8-35.4); Mean Corpuscular Hemoglobin 25.7 pg (27.0-31.2); Mean Corpuscular Volume 83.5 fl (81-99); Mean Platelet Volume 9.2 fl (7.4-10.4); Monocytes # 0.4 K/mm3 (0.1-1.0); Monocytes % 5.5 % (1.7-9.3); Neutrophils # 4.6 K/mm3 (1.8-7.8); Neutrophils % 58.3 % (37.0-80.0); Platelet Count 313 K/mm3 (142-424); Red Blood Count 4.84 M/mm3 (4.20-5.40); Red Cell Distribution Width 15.3 % (11.5-17.5); White Blood Count 7.8 K/mm3 (4.5-13.0)
[2023-05-21 13:48] LABS: Bacteria,Urine 1+ /lpf; RBC,Urine Occasional #/hpf (0-3)
[2023-05-21 14:05] LABS: HCG Qualitative, Serum Negative (Negative)
[2023-05-21] MEDS: CEFTRIAXONE SODIUM 1 GM in 0.9 % SODIUM CHLORIDE 50 ML IV (14:23)
--- NOTE | 2023-05-25 11:22 | PC.NURSE ---
urine culture discussed with evi Ochoa with cefdinir, NTD
== END 2023-05-21 15:30 | disposition home or self-care (01) ==
PROVIDERS: Emergency Provider Student in an Organized Health Care Education/Training Program; PCP Pediatrics
DX: R10.30 Lower abdominal pain, unspecified (principal); B96.89 Other specified bacterial agents as the cause of diseases classified elsewhere; R11.0 Nausea
CPT/HCPCS: 80053; 81001; 83690; 84703; 85025; 87086; 96365; 96375; 99285; J0696; J2405

== ENCOUNTER 2023-06-09 14:52 | Outpatient (CLI) | payer OTHER, MEDICAID, SELFPAY ==
[2023-06-09 15:22] LABS: Basophils # 0.1 K/mm3 (0-0.2); Basophils % 1.4 % (0.1-2.0); Eosinophils # 0.3 K/mm3 (0.0-0.4); Hematocrit 38.2 % (37.0-47.0); Hemoglobin 12.3 g/dL (12.2-16.2); Lymphocytes # 2.7 K/mm3 (0.7-4.5); Lymphocytes % 34.2 % (10-50); Mean Corpuscular HGB Conc 32.2 g/dL (31.8-35.4); Mean Corpuscular Hemoglobin 26.8 pg (27.0-31.2); Mean Corpuscular Volume 83.2 fl (81-99); Mean Platelet Volume 9.4 fl (7.4-10.4); Monocytes # 0.6 K/mm3 (0.1-1.0); Neutrophils # 4.2 K/mm3 (1.8-7.8); Neutrophils % 53.3 % (37.0-80.0); Platelet Count 290 K/mm3 (142-424); Red Blood Count 4.59 M/mm3 (4.20-5.40); Red Cell Distribution Width 15.7 % (11.5-17.5); White Blood Count 7.8 K/mm3 (4.5-13.0)
[2023-06-09 15:24] LABS: Chloride 109 mmol/L (98-107); Potassium 4.1 mmoL/L (3.5-5.1); Sodium 140 mmol/L (136-145)
[2023-06-09 15:27] LABS: Alanine Aminotransferase 14 U/L (12-78); Albumin Level 3.9 g/dl (3.5-5.0); Albumin/Globulin Ratio 1.3 (1.1-1.8); Alkaline Phosphatase 83 U/L (38-126); Anion Gap 10.1 mEq/L (5-15); Aspartate Amino Transferase 20 U/L (14-36); Bilirubin,Total 0.5 mg/dl (0.2-1.3); Blood Urea Nitrogen 9 mg/dl (7-17); Calcium 9.5 mg/dl (8.4-10.2); Carbon Dioxide 25 mmol/L (22.0-30.0); Estimated Glomerular Filt Rate 127 ml/min (>60); GFR (African American) 154 ML/MIN (>60); Globulin 2.9 g/dL (1.3-3.2); Glucose 93 mg/dl (74-100); Total Protein,Serum 6.8 g/dl (6.3-8.2)
[2023-06-09 15:48] LABS: HCG,Quantitative < 2 mIU/ml (0-5.42)
== END 2023-06-09 23:59 | disposition home or self-care (01) ==
LOC: LAB 14:53
PROVIDERS: Visit Provider Obstetrics & Gynecology
DX: N83.202 Unspecified ovarian cyst, left side (principal)
CPT/HCPCS: 36415; 80053; 84702; 85025

== ENCOUNTER 2023-06-16 06:04 | Day surgery (SDC) | payer OTHER, MEDICAID, SELFPAY ==
[2023-06-13 13:38] VITALS: BMI 34.3
[2023-06-16] VITALS (10 sets, daily range): BP systolic 107–122; BP diastolic 52–83; PULSE 68–110; RESP 12–26; TEMP 35.9–36.9; O2SAT 98–100
[2023-06-16] MEDS: LACTATED RINGERS 1000ML 1,000 ML 25 ML IV (06:41)
--- NOTE | 2023-06-16 07:07 | P.PNANES_ITS ---
[facility] Disclaimer: The information contained in this section may have been updated after the patient was seen, as this information can be updated by other users. 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 Migraine Left ovarian cyst Nausea Pelvic pain Surgical History No significant past surgical history Family History Other Alcoholism Asthma Cancer Coronary artery disease Diabetes FHx: mental illness Heart attack Hyperlipidemia Hypertension Stroke Social History Smoking Status: Never smoker alcohol intake: never substance use type: marijuana current occupational status: employed Travel in the last 8 weeks: None [facility] Anesthesia Checklist Patient Identification Patient Identification: Arm Band Structural Data Admitted From: Home Planned Operative Procedure/s: Diagnostic Laparoscopy, Left Ovarian Cystectomy Consent for Planned Operative Procedure(s) Verified: Yes Verified Documents: Surgical Consent and History and Physical NPO Status Verified Time NPO: 00:00 Additional verifications Anesthesia Reactions: No Hx Blood Transfusions: No Blood Transfusion Reaction: No Airway Assessment Mallampati Score:: Class II C-Spine Mobility Assessed: Yes TMJ Mobility Assessed: Yes Dentition: Good Dentition (Braces) Neurological Assessment Level of Consciousness: Awake, Alert and Appropriate Anesthesia Plan Anesthesia Risk discussed: Yes Anesthesia Plan: Verified ASA Class: II Anesthesia Type: General
[2023-06-16] MEDS: BUPIVACAINE 0.5% 10ML VIAL 100 MG (08:05)
--- NOTE | 2023-06-16 08:25 | SUR.OPER ---
the left ovarian cyst was removed and an additional cyst was noted on the right ovary, the patients mother consented to removing the cyst of the right ovary, the consent form was updated and i was present while she signed for consent. Camila Rankin RN was a witness as well.
--- NOTE | 2023-06-16 09:06 | P.PNANES_ITS ---
[facility] Anesthesia Record Part I Anesthesia Record I Intake, IV Amount: 800 Hydration: Adequate Estimated blood loss (mL): 10 Urine output (mL): 25 Blood Products used (#): none Blood Pressure: 111/83 SaO2: 99 Pulse Rate: 109 Airway Patency: Patent Respiratory Rate: 26 Temperature: 96.6 F Patient is:: Awake, Drowsy and Stable Stable to PACU at:: 09:05
--- NOTE | 2023-06-16 09:14 | EXP.OP.NOTE ---
Date of procedure: 06/16/23 Pre-op Diagnosis:: 1. Abdominal pain 2. Left ovarian cyst 3. Nausea 4. Pelvic pain Post-op Diagnosis:: 1. Abdominal pain 2. Left ovarian cyst 3. Nausea 4. Pelvic pain 5. Right paratubal cyst Procedure performed:: Laparoscopy, drainage of left ovarian cyst with disruption of cyst wall and removal of portion of cyst wall, drainage of right paratubal cyst Surgeon:: Kasandra Arambula DO Statement Clerks Manager(s):: N/a RECREATION THERAPY DIRECTOR:: Roxanna Rendon Anesthesia: GETA Estimated blood loss (mL): 5 Clinical Note:: Ms Christy Fatima is very pleasant 18 yo who presents for preop visit. She reports chronic abdominal pain. Pain is daily and severe at times. Pain has seemed to increase recently. She admits to associated nausea. No fever/chills. Denies abnormal bleeding, vaginal discharge, itching or burning. Pelvic ultrasound 03/21/23 demonstrated retroverted, retroflexed uterus normal in shape and size. The endometrium is normal at 11.2 mm. 2. The left ovary is grossly enlarged with a simple appearing cyst measuring 13.5 cm. 3. The right ovary is enlarged and contains a simple follicle measuring 2.9 cm. 4. No fluid in the cul-de-sac. Follow-up pelvic ultrasound 05/02/23 demonstrated retroverted uterus normal in shape and size. The endometrium appears normal. 2. The left ovary is enlarged with a simple appearing cyst that measures 13.6 cm. This is similar in size to her last ultrasound. 3. The right ovary appears normal and has a follicle measuring 3.0 cm. No change in ultrasound. She desires surgical intervention. Operative findings:: 1. On bimanual exam, uterus is normal size and shape, retroverted 2. On laparoscopic exam, liver, stomach and bowel grossly normal; large ovarian cyst extending above pelvic brim. Unable to differentiate between normal ovarian tissue and cyst. Unable to visualize pelvic anatomy secondary to large cyst. Once cyst was drained, grossly normal appearing uterus, left fallopian tube and right ovary. Large right paratubal cyst noted. 3. A total of 900 cc of cystic fluid was suctioned from the ovary and pelvis Operative note:: Risks, benefits and alternatives were discussed with the patient. Risks include but are not limited to bleeding, infection, damage to adjacent structures and VTE. Patient voiced understanding and agreed to proceed with surgery. She was wheeled back to the operating room and placed under general anesthesia without difficulty. She was placed in the dorsal lithotomy position and prepped and draped in normal sterile fashion. A straight catheter was used to drain the bladder. A bimanual exam was performed. A weighted Auvard was placed in the vaginal vault. A single tooth tenaculum was placed on the anterior lip of the cervix. [place] manipulator was inserted into the cervical canal and attached to the tenaculum. Weighted Auvard was removed from the vagina. Attention was then turned to the abdomen. Skin just below the umbilicus was injected with 0.5% marcaine. A 1.5cm infraumbilical incision was made. Veress needle was tested and inserted intrabdominally. Opening pressure was 5 mm Hg. The peritoneal cavity was insulflated to 15 mm Hg. An 11 mm blunt trocar was attempted to be inserted intrabdominally without success secondary to tight and thick fascia. Skin at Valladares's point was injected with 0.5 % marcaine. A 5 mm incision was made and obturator was inserted at Valladares's point. Obturator was removed and sleeve left in place. A 5 mm Laparoscope was inserted into the trocar sleeve. Abdomen and pelvis was viewed in its entirety. Examination of the peritoneal cavity revealed no signs of injury from entry and normal anatomic structures. See findings above. Pictures were taken. Next, 11 mm trocar was inserted through infraumbilical incision under direct laparoscopic visualization. Obturator was removed and sleeve was left in place. Laparoscoped was inserted through 11 mm sleeve. LLQ port site was transilluminated and injected with 0.5% marcaine. A 5 mm incision was made and 5 mm trocar was inserted intraabdominally under direct laparoscopic visualization. Obturator was removed and sleeve was left in place. RLQ was transilluminated and injected with 0.5% marcaine. A 5 mm incision was made and 5 mm trocar was inserted intraabdominally under direct laparoscopic visualization. Obturator was removed and sleeve was left in place. Ligasure hook was used to created a hole in left ovarian cyst and cystic structure was suctioned out. A total of 900 cc of fluid was collected. Ligasure was then used to remove portion of cyst wall. Specimen was removed from the abdomen and handed off of sterile field. Specimen will be sent to pathology for review. Nursing staff discussed right paratubal cyst with Carmen's mother. Consent was obtained for drainage of right paratubal cyst. Ligasure hook was used to create a hole in right paratubal cyst. Cystic fluid was suctioned. Excellent hemostasis was noted. Left lower quadrant trocar was removed under direct laparoscopic visualization. Right lower quadrant trocar and LUQ trocar was removed under direct laparoscopic visualization. Pneumoperitoneum was released into the atmosphere. Infraumbilical trocar was removed under direct laparoscopic visualization to ensure no herniation of bowel or omentum. Skin incisions were closed with 3-0 Vicryl. Dermabond was applied over closed skin incisions. All instruments were removed from the vagina. Tenaculum site was noted to be hemostatic. Patient was cleaned and placed into the dorsal supine position. She awoke from anesthesia without difficulty. She was transported to the recovery room in stable condition. She was given instructions for discharge and to follow-up in the office in 2 weeks at which time pathology will be reviewed. Condition: stable Disposition: same day Specimens:: 1. Portion of left ovarian cyst wall Complications:: None
[2023-06-16] MEDS: MORPHINE 2MG/ML SYRINGE 2 MG IV (09:29)
--- NOTE | 2023-06-16 10:07 | SUR.OPER ---
900ML of fluid removed from the left ovarian cyst
--- NOTE | 2023-06-16 12:25 | P.PNANES_ITS ---
[facility] Anesthesia Record Part II Anesthesia Record Part II Discharge Time: 10:18 Destination: Surgical Day Care (OP Surgery) PACU nurse assessment reviewed?: Yes Patient Condition:: Good Anesthesia Complications:: None Swallowing reflex intact?: Yes Airway Patency: Patent Cyanosis?: No Blood Pressure: 109/56 SaO2: 99 Respiratory Rate: 18 Pulse Rate: 72 Temperature: 96.6 F Mental Status: Alert & Oriented Pain level:: 4 Nausea and/or vomitting:: None Intake, IV Amount: 800 Hydration: Adequate
== END 2023-06-16 09:55 | disposition home or self-care (01) ==
PROVIDERS: Visit Provider Obstetrics & Gynecology
PROC: 0TTB4ZZ Resection of Bladder, Percutaneous Endoscopic Approach (ICD-10-PCS; CPT 51999; principal; 2023-06-16 07:30)
DX: N83.202 Unspecified ovarian cyst, left side (principal); R10.9 Unspecified abdominal pain; R11.0 Nausea; R10.2 Pelvic and perineal pain; N83.8 Other noninflammatory disorders of ovary, fallopian tube and broad ligament
CPT/HCPCS: 49322 ×2; 96374; J2405; J2710

== ENCOUNTER 2023-07-31 11:19 | Emergency (ER) | payer OTHER, MEDICAID, SELFPAY ==
[2023-07-31 11:55] VITALS: BP 98/70; PULSE 75; RESP 18; TEMP 36.6; O2SAT 97; BMI 32.2
--- NOTE | 2023-07-31 12:11 | EXP.UTC ---
Discharge Plan Disposition Patient Disposition: Home, Self-Care Condition: Good Prescriptions Prescriptions: No Action norelgestromin-ethin.estradiol 150-35 mcg/24 hr patch weekly 1 patch topical WEEKLY Referrals Follow up/Referrals: Provider,Referral, [Primary Care Provider] - See instructions Activity Restrictions/Add. Instructions Additional Instructions/Restrictions: Monitor temperature. Seek treatment if fever develops. Follow-up immediately if new or worse symptoms worsen or no noticeable improvement over 48 hours. Increase fluids such as water, Gatorade, Powerade, juice or Pedialyte with limited formula/dietary in children No food is okay as long as you are drinking. Once ready to eat start bland such as bananas, rice, applesauce, toast. Contagious until no diarrhea, vomiting, fever times 48 hours without medication Avoid antidiarrheals unless told otherwise. Best to let the virus run its course. Follow-up immediately for new or worsening symptoms or no noticeable improvement over the next 48 hours. Clinical Impressions Clinical Impression: Nausea & vomiting, UTI (urinary tract infection) Instructions Patient Instructions: DI for Urinary Tract Infection (UTI) Discharge ED Provider: Mira ([facility])Leonora [facility] [place] HPI General Stated complaint: vomiting, diarrhea Mode of Arrival: Ambulatory Source of Information: Patient Limitations: No Limitations Time Seen by Provider: 07/31/23 12:11 Description of Symptoms (Recalled from Triage Doc. by RN): PATIENT C/O VOMITING AND DIARRHEA X 1 WEEK. RECENTLY EXPOSED TO A STOMACH VIRUS HEENT Symptoms (Recalled from RN notes): No Resp Symptoms (Recalled from RN notes): No Skin Symptoms (Recalled from RN notes): No MS Symptoms (Recalled from RN notes): No Functional Status (Recalled from RN notes): WNL History of Present Illness Provider Complaint: 18 YR OLD FEMALE PRESENTS FOR C/O URINARY FREQ, VOMITING AND DIARRHEA X 1 WEEK. RECENTLY EXPOSED TO A STOMACH VIRUS Related Data Home Medications Medication Instructions Recorded Confirmed norelgestromin 150 mcg-e.estradiol 1 patch topical WEEKLY 07/31/23 07/31/23 35 mcg/24 hr weekly transderm patch Allergies Allergy/AdvReac Type Severity Reaction Status Date / Time acetaminophen [From Tylenol] AdvReac Mild Vomiting Verified 06/29/23 14:49 Worker's Comp Is this a Worker's Comp case?: No [facility] Disclaimer: The information contained in this section may have been updated after the patient was seen, as this information can be updated by other users. 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) Smoking Status: Never smoker alcohol intake: never substance use type: marijuana current occupational status: employed Travel in the last 8 weeks: None ROS Obtained: Yes All systems reviewed & no additional complaints except as documented Constitutional Constitutional: Reports system reviewed and no additional complaints, except as documented Eyes Eyes: Reports system reviewed and no additional complaints, except as documented ENT Ears, Nose, Mouth, and Throat: Reports system reviewed and no additional complaints, except as documented Cardiovascular Cardiovascular: Reports system reviewed and no additional complaints, except as documented Respiratory Respiratory: Reports system reviewed and no additional complaints, except as documented Gastrointestinal Gastrointestingal: Reports system reviewed and no additional complaints, except as documented, as per HPI, diarrhea and vomiting Genitourinary Female Genitourinary: Reports system reviewed and no additional complaints, except as documented, Reports as per HPI and Reports urinary frequency Musculoskeletal Musculoskeletal: Reports system reviewed and no additional complaints, except as documented Integumentary/Breasts Skin/Breast: Reports system reviewed and no additional complaints, except as documented Neurologic Neurologic: Reports system reviewed and no additional complaints, except as documented Endocrine Endocrine: Reports system reviewed and no additional complaints, except as documented Hematologic/Lymphatic Henatologic/Lymphatic: Reports system reviewed and no additional complaints, except as documented Physical Exam General General appearance: alert and in no apparent distress ENT ENT exam: Present normal exam Respiratory Respiratory exam: Present normal lung sounds bilaterally Cardiovascular Cardiovascular exam: Present regular rate and normal rhythm Abdominal Exam Abdominal exam: Present soft and normal bowel sounds Extremities Exam Extremities exam: Present normal inspection Neurological Exam Neurological exam: Present alert and oriented X3 Skin Skin exam: Present warm and intact Lymphatic Lymphatic Findings: no adenopathy Medical Decision Making Medical Records Medical records reviewed: Yes I reviewed the patient's medical records. Yaakov Inquiry Pt receiving controlled substance: No Yaakov was queried for this patient: No Vital Signs: 07/31/23 11:55 Temperature 97.8 F Temperature Source Oral Pulse Rate [Left Brachial] 75 Respiratory Rate 18 Blood Pressure [Left Arm] 98/70 L Blood Pressure Mean [Left Arm] 79 Blood Pressure Source [Left Arm] Automatic Cuff Blood Pressure Position [Left Arm] Sitting 02 Sat by Pulse Oximetry 97 Oxygen Delivery Method Room Air Lab Data Lab results reviewed: Yes I reviewed the patient's lab results.
[2023-07-31 12:15] LABS: Apearance,Urine Cloudy (Clear); Bilirubin,Urine 1+ (Negative); Blood, Urine Negative (Negative); Color,Urine Dark Yellow (Yellow); Glucose,Urine (UA) Negative (Negative); Ketones,Urine Negative (Negative); Protein,Urine 1+ (Negative); Specific Gravity, Urine >= 1.030 (1.005-1.030); UTC Leukocyte Esterase,Urine 1+ (Negative); UTC Nitrate,Urine Negative (Negative); Urobilinogen,Urine 0.2 EU/dl (0.2)
[2023-07-31 12:16] LABS: UTC Pregnancy Test, Urine Negative (Negative)
[2023-07-31 12:26] VITALS: BP 98/70; PULSE 75; RESP 18; TEMP 36.6; O2SAT 97
== END 2023-07-31 12:29 | disposition home or self-care (01) ==
PROVIDERS: Emergency Provider Nurse Practitioner Family
DX: N39.0 Urinary tract infection, site not specified (principal); B96.89 Other specified bacterial agents as the cause of diseases classified elsewhere; R35.0 Frequency of micturition
CPT/HCPCS: 81003; 81025; 87086; 99212; 99214; G0463

== ENCOUNTER 2023-08-07 16:21 | Emergency (ER) | payer OTHER, MEDICAID, SELFPAY ==
[2023-08-07 16:22] VITALS: BP 108/67; PULSE 114; RESP 20; TEMP 36.8; O2SAT 97; BMI 35.2
--- NOTE | 2023-08-07 16:44 | PC.NURSE ---
DR THOMPSON AT BEDSIDE
--- NOTE | 2023-08-07 16:48 | ED_ITS ---
Discharge Plan Disposition Patient Disposition: Home, Self-Care Prescriptions Prescriptions: New ondansetron 4 mg tablet,disintegrating 4 mg PO Q6H PRN (Reason: nausea and vomiting) 5 Days Qty: 20 0RF No Action norelgestromin-ethin.estradiol 150-35 mcg/24 hr patch weekly 1 patch topical WEEKLY cephalexin 500 mg tablet 500 mg PO BID 7 Days Qty: 14 0RF Referrals Follow up/Referrals: Provider,Referral, MD [Primary Care Provider] - See instructions Activity Restrictions/Add. Instructions Additional Instructions/Restrictions: No emergent medical condition identified today please return with any significant worsening of your abdominal pain inability keep fluids down or other concerns. Your symptoms are most likely consistent with a viral gastroenteritis which should be self-limiting. Clinical Impressions Clinical Impression: Nausea vomiting and diarrhea Discharge ED Provider: Dhaval Ricketts General Adult HPI General Chief complaint: Headache Stated complaint: v/d headache Time Seen by Provider: 08/07/23 16:43 Mode of Arrival: Ambulatory Source of Information: Patient Limitations: No Limitations Description of Symptoms (Recalled from ER Triage Doc. by RN): pt complains of a headache and n/v/d x1 week, pt is very vague with her s/s and triage questions History of Present Illness HPI narrative: Patient is a previously healthy 18-year-old female presenting today with nausea vomiting diarrhea and headache for the last week. She denies any blood in her stool or vomit. No fevers or chills no sick contacts that she is aware of no significant abdominal pain no missed periods. LMP was 1 week ago. No vaginal bleeding vaginal discharge urinary symptoms constipation etc. Her sister came into the emergency department today for abdominal pain given the fact that they are to be walking together patient decided that she would get checked out as she has not been feeling well for the last few days. Related Data Home Medications Medication Instructions Recorded Confirmed norelgestromin 150 mcg-e.estradiol 1 patch topical WEEKLY 07/31/23 07/31/23 35 mcg/24 hr weekly transderm patch Previous Rx's Medication Instructions Recorded cephalexin 500 mg tablet 500 mg PO BID 7 days #14 tabs 07/31/23 ondansetron 4 mg disintegrating 4 mg PO Q6H PRN nausea and 08/07/23 tablet vomiting 5 days #20 tabs Allergies Allergy/AdvReac Type Severity Reaction Status Date / Time acetaminophen [From Tylenol] AdvReac Mild Vomiting Verified 07/31/23 12:23 [facility] Disclaimer: The information contained in this section may have been updated after the patient was seen, as this information can be updated by other users. 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 (Reviewed 07/31/23 @ 12:12 by Leonora Meyers ([facility]), ASP NET SOFTWARE DEVELOPER) Urinary tract infection Migraine Left ovarian cyst Nausea Pelvic pain Surgical History (Reviewed 07/31/23 @ 12:12 by Leonora Meyers ([facility]), ASP NET SOFTWARE DEVELOPER) No significant past surgical history Family History (Reviewed 07/31/23 @ 12:12 by Leonora Meyers ([facility]), ASP NET SOFTWARE DEVELOPER) Diabetes Coronary artery disease Alcoholism Hyperlipidemia Heart attack FHx: mental illness Cancer Hypertension Stroke Asthma Social History Smoking Status: Never smoker alcohol intake: never substance use type: marijuana current occupational status: employed Travel in the last 8 weeks: None ROS Obtained: Yes All systems reviewed & no additional complaints except as documented Physical Exam General General appearance: alert and in no apparent distress Respiratory Respiratory exam: Present normal lung sounds bilaterally Cardiovascular Cardiovascular exam: Present regular rate and normal rhythm Abdominal Exam Abdominal exam: Present soft; Absent distention or tenderness Neurological Exam Neurological exam: Present alert and oriented X3 Medical Decision Making Yaakov Inquiry Pt receiving controlled substance: No Vital Signs: 08/07/23 16:22 Temperature 98.3 F Temperature Source Oral Pulse Rate [Right Radial] 114 H Respiratory Rate 20 Blood Pressure [Right Arm] 108/67 L Blood Pressure Mean [Right Arm] 80 02 Sat by Pulse Oximetry 97 Oxygen Delivery Method Room Air Lab Data Lab results reviewed: Yes I reviewed the patient's lab results. Lab Results 08/07/23 16:30: WBC 10.2, RBC 4.77, Hgb 12.7, Hct 39.3, MCV 82.4, MCH 26.6 L, MCHC 32.3, RDW 15.0, Plt Count 364, MPV 9.0, Neut % (Auto) 52.8, Lymph % (Auto) 38.4, [place] % (Auto) 5.4, Eos % (Auto) 2.2, Baso % (Auto) 1.2, Neut # (Auto) 5.4, Lymph # (Auto) 3.9, [place] # (Auto) 0.6, Eos # (Auto) 0.2, Baso # (Auto) 0.1, Sodium 137, Potassium 3.7, Chloride 106, Carbon Dioxide 20 L, Anion Gap 14.7, BUN 9, Creatinine 1.00, Estimated Creat Clear 116, Estimated GFR 71, Est GFR ( Amer) 86, Glucose 111 H, Calcium 9.5, Total Bilirubin 0.6, AST 29, ALT 25, Alkaline Phosphatase 85, Total Protein 8.7 H D, Albumin 4.4, Globulin 4.3 H, Albumin/Globulin Ratio 1.0 L, Lipase 68, Serum HCG, Qual Negative 08/07/23 16:30 08/07/23 16:30 Orders (Tests/Meds): ED MEDICATIONS Generic Name Dose Route Start Last Admin Trade Name Freq PRN Reason Stop Dose Admin Lactated Ringer's 1,000 mls @ 999 mls/hr 08/07/23 17:00 08/07/23 16:53 Lactated Ringer's 1000 Ml Bag IV 08/07/23 18:00 999 mls/hr .Q1H1M NEMO Administration Discontinued Medications Generic Name Dose Route Start Last Admin Trade Name Freq PRN Reason Stop Dose Admin Ketorolac Tromethamine 15 mg 08/07/23 16:48 08/07/23 16:52 Ketorolac 30mg/Ml Vial IV 08/07/23 16:49 15 mg ONCE ONE Administration Ondansetron HCl 4 mg 08/07/23 16:46 08/07/23 16:53 Ondansetron 4mg/2ml Vial IV 08/07/23 16:47 4 mg ONCE ONE Administration ORDERS Category Date Time Status CBC w/Auto Diff [Complete Blood Count Auto Diff] Stat Lab 08/07/23 16:30 Completed CMP [Comprehensive Metabolic Panel] Stat Lab 08/07/23 16:30 Completed HCG Qualitative, Serum Stat Lab 08/07/23 16:30 Completed Lipase Stat Lab 08/07/23 16:30 Completed Medical Decision Narrative: 18-year-old female very benign appearance nontoxic presents of nausea vomit diarrhea and headache most likely viral in nature. Abdominal exam is benign will check basic blood work give IV fluids nausea medicine Toradol and reassess. Reassessment 5:22 PM serial abdominal exams benign patient feeling significantly better she is tolerating p.o. working diagnosis is viral gastroenteritis. Does not consistent with surgical process given her benign abdominal exam. No endorgan damage from dehydration. Prescription of Zofran was sent to her pharmacy return precautions emphasized she was discharged in improved and stable condition. Critical Care Critical Care Time Critical Care Time: No
[2023-08-07] MEDS: KETOROLAC 30MG/ML VIAL 15 MG IV (16:52)
[2023-08-07] MEDS: ONDANSETRON 4MG/2ML VIAL 4 MG IV (16:53)
[2023-08-07] MEDS: LACTATED RINGERS 1000ML 1,000 ML 999 ML IV (16:53)
[2023-08-07 16:55] LABS: Chloride 106 mmol/L (98-107); Potassium 3.7 mmoL/L (3.5-5.1); Sodium 137 mmol/L (136-145)
[2023-08-07 16:57] LABS: Alanine Aminotransferase 25 U/L (12-78); Alkaline Phosphatase 85 U/L (38-126); Anion Gap 14.7 mEq/L (5-15); Aspartate Amino Transferase 29 U/L (14-36); Basophils # 0.1 K/mm3 (0-0.2); Basophils % 1.2 % (0.1-2.0); Bilirubin,Total 0.6 mg/dl (0.2-1.3); Blood Urea Nitrogen 9 mg/dl (7-17); Carbon Dioxide 20 mmol/L (22.0-30.0); Creatinine Clearance Estimated 116 mL/min (50-200); Eosinophils # 0.2 K/mm3 (0.0-0.4); Eosinophils % 2.2 % (0.1-12.0); Estimated Glomerular Filt Rate 71 ml/min (>60); GFR (African American) 86 ML/MIN (>60); Hematocrit 39.3 % (37.0-47.0); Hemoglobin 12.7 g/dL (12.2-16.2); Lymphocytes # 3.9 K/mm3 (0.7-4.5); Lymphocytes % 38.4 % (10-50); Mean Corpuscular HGB Conc 32.3 g/dL (31.8-35.4); Mean Corpuscular Hemoglobin 26.6 pg (27.0-31.2); Mean Corpuscular Volume 82.4 fl (81-99); Monocytes # 0.6 K/mm3 (0.1-1.0); Monocytes % 5.4 % (1.7-9.3); Neutrophils # 5.4 K/mm3 (1.8-7.8); Neutrophils % 52.8 % (37.0-80.0); Platelet Count 364 K/mm3 (142-424); Red Blood Count 4.77 M/mm3 (4.20-5.40); White Blood Count 10.2 K/mm3 (4.5-13.0)
[2023-08-07 16:58] LABS: Albumin Level 4.4 g/dl (3.5-5.0); Calcium 9.5 mg/dl (8.4-10.2); Globulin 4.3 g/dL (1.3-3.2); Glucose 111 mg/dl (74-100); Lipase 68 U/L (23-300); Total Protein,Serum 8.7 g/dl (6.3-8.2)
[2023-08-07 17:06] LABS: HCG Qualitative, Serum Negative (Negative)
[2023-08-07 17:27] VITALS: BP 109/75; PULSE 78; O2SAT 100
[2023-08-07 17:30] VITALS: BP 105/70; PULSE 70; O2SAT 100
[2023-08-07 17:34] VITALS: BP 109/75; PULSE 83; RESP 18; TEMP 36.7; O2SAT 98
== END 2023-08-07 17:49 | disposition home or self-care (01) ==
PROVIDERS: Emergency Provider Student in an Organized Health Care Education/Training Program
DX: R11.2 Nausea with vomiting, unspecified (principal); R19.7 Diarrhea, unspecified; R51.9 Headache, unspecified
CPT/HCPCS: 80053; 83690; 84703; 85025; 96361; 96374; 96375; 99284; J1885; J2405; J7120

== ENCOUNTER 2023-09-20 14:17 | Emergency (ER) | payer MEDICAID, SELFPAY ==
[2023-09-20 14:30] VITALS: BP 119/85; PULSE 114; RESP 18; TEMP 36.9; O2SAT 96; BMI 30.7
[2023-09-20 14:56] LABS: UTC Strep Screen (Rapid) Negative (Negative)
--- NOTE | 2023-09-20 15:34 | ED_ITS ---
Discharge Plan Disposition Patient Disposition: Home, Self-Care Condition: Good Prescriptions Prescriptions: New amoxicillin 500 mg capsule 500 mg PO BID 10 Days Qty: 20 0RF No Action norelgestromin-ethin.estradiol 150-35 mcg/24 hr patch weekly 1 patch topical WEEKLY Referrals Follow up/Referrals: Provider,Referral, [Primary Care Provider] - See instructions Activity Restrictions/Add. Instructions Additional Instructions/Restrictions: *Monitor Temp, Over the counter Motrin or Tylenol as directed/as needed Tylenol every 4 hours and Motrin every 6 hours (as long as your family doctor has told you that you can take it) for fever or pain. and straight to ER if unable to lower temp less than 101.0 after medication given *Warm salt water gargles may help to soothe the throat *Throat Lozenges? *Warm fluids like tea with honey may help to soothe the throat? *Sleep elevated *Humidifier/Vaporizer Your throat swab was sent for culture. Those results are typically sent to your primary care. Be sure to follow up in 2-3 days with your family doctor/primary care physician if no improvement so they can review those result and treat if necessary. If you don?t have a primary care doctor, I recommend you get one but in the mean time, you will have to return to a walk in clinic Follow up IMMEDIATELY for new or worsening symptoms or no Noticeable improvement over the next 48-72 hours. 911 for difficulty breathing or swallowing You were tested for today for COVID19 your test result should be back in the next few ?hours, you may check your results on the [facility] [employer] [facility] Portal Clinical Impressions Clinical Impression: Pharyngitis Instructions Patient Instructions: Sore Throat, DI for Headache Print Language Print Language: [place] Discharge ED Provider: Liliana Goldberg [facility] [place] HPI General Stated complaint: sore throat Mode of Arrival: Ambulatory Source of Information: Patient Limitations: No Limitations Time Seen by Provider: 09/20/23 15:34 Description of Symptoms (Recalled from Triage Doc. by RN): PATIENT C/O SORE THROAT SINCE TUESDAY HEENT Symptoms (Recalled from RN notes): Yes Resp Symptoms (Recalled from RN notes): No Skin Symptoms (Recalled from RN notes): No MS Symptoms (Recalled from RN notes): No Functional Status (Recalled from RN notes): WNL History of Present Illness Provider Complaint: Patient states that she has been having sore throat since Tuesday that has continued to get worse with headache an feeling achy States today she was not feeling any better so she came in to get checked worried she may have strep throat Related Data Home Medications ?Medication ?Instructions ?Recorded ?Confirmed norelgestromin 150 mcg-e.estradiol 1 patch topical WEEKLY 07/31/23 09/20/23 35 mcg/24 hr weekly transderm patch Previous Rx's ?Medication ?Instructions ?Recorded amoxicillin 500 mg capsule 500 mg PO BID 10 days #20 caps 09/20/23 Allergies Allergy/AdvReac Type Severity Reaction Status Date / Time acetaminophen [From Tylenol] AdvReac Mild Vomiting Verified 07/31/23 12:23 Worker's Comp Is this a Worker's Comp case?: No PFSH PFS Disclaimer: The information contained in this section may have been updated after the patient was seen, as this information can be updated by other users. 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) No significant past surgical history Family History , HEAD PAPER TESTER) Diabetes Coronary artery disease Alcoholism Hyperlipidemia Heart attack FHx: mental illness Cancer Hypertension Stroke Asthma Social History Smoking Status: Never smoker alcohol intake: never substance use type: marijuana current occupational status: employed Travel in the last 8 weeks: None ROS Obtained: Yes All systems reviewed & no additional complaints except as d ocumented and Yes Systems reviewed as appropriate & no additional complaints except as documented Constitutional Constitutional: Reports system reviewed and no additional complaints, except as documented, Reports as per HPI and Reports headache(s) ENT Ears, Nose, Mouth, and Throat: Reports system reviewed and no additional complaints, except as documented, Reports as per HPI, Reports headache(s) and Reports sore throat Cardiovascular Cardiovascular: Reports system reviewed and no additional complaints, except as documented and Reports as per HPI Respiratory Respiratory: Reports system reviewed and no additional complaints, except as documented and Reports as per HPI Gastrointestinal Gastrointestingal: Reports system reviewed and no additional complaints, except as documented and as per HPI Neurologic Neurologic: Reports headache(s) Physical Exam General General appearance: alert and in no apparent distress ENT ENT exam: Present mucous membranes moist Expanded ENT Exam Throat exam: Present tonsillar erythema (small patchy like area noted) Respiratory Respiratory exam: Present normal lung sounds bilaterally; Absent respiratory distress or wheezes Cardiovascular Cardiovascular exam: Present regular rate, normal rhythm and tachycardia Neurological Exam Neurological exam: Present alert, oriented X3 and normal gait Medical Decision Making Yaakov Inquiry Pt receiving controlled substance: No Yaakov was queried for this patient: No Vital Signs: 09/20/23 14:30 Temperature 98.5 F Temperature Source Oral Pulse Rate [Left Brachial] 114 H Respiratory Rate 18 Blood Pressure [Left Arm] 119/85 Blood Pressure Mean [Left Arm] 96 Blood Pressure Source [Left Arm] Automatic Cuff Blood Pressure Position [Left Arm] Sitting 02 Sat by Pulse Oximetry 96 Oxygen Delivery Method Room Air Lab Data Lab results reviewed: Yes I reviewed the patient's lab results. Lab Results 09/20/23 14:39: Strep Scn Rapid Clinic Negative Orders (Tests/Meds): ORDERS Category Date Time Status Strep Screen Confirmation Stat Micro 09/20/23 14:39 Received
[2023-09-20 15:49] VITALS: BP 119/85; PULSE 114; RESP 18; TEMP 36.9; O2SAT 96
== END 2023-09-20 15:51 | disposition home or self-care (01) ==
PROVIDERS: Emergency Provider Nurse Practitioner
DX: J02.9 Acute pharyngitis, unspecified (principal); R51.9 Headache, unspecified
CPT/HCPCS: 87635; 87880; 99212; 99214; G0463